=== PATIENT | female | born 1970 | race Caucasian/White ===

== ENCOUNTER 2023-09-29 21:47 | Emergency (ER) | payer OTHER ==
[~2023-09-29] VITALS: Ht 167.6 cm; Wt 65.8 kg
[2023-09-29 22:13] VITALS: BP_SYST 131; PULSE 79; RESP 16; TEMP 99; O2SAT 99
[2023-09-30 00:19] VITALS: BP_SYST 102; PULSE 78; RESP 18; TEMP 97.9; O2SAT 95
== END 2023-09-30 00:19 | disposition home or self-care (01) ==
LOC: SED 21:47
DX: G43.409 Hemiplegic migraine, not intractable, without status migrainosus (principal); H53.9 Unspecified visual disturbance; R42 Dizziness and giddiness
CPT/HCPCS: 99281; 99283